=== PATIENT | male | born 1995 | race Caucasian/White ===

== ENCOUNTER 2024-05-01 13:10 | Emergency (ER) | payer OTHER, SELFPAY ==
[2024-05-01 13:13] VITALS: BP 142/81; PULSE 79; RESP 16; TEMP 36.6; O2SAT 98; BMI 29.5
--- NOTE | 2024-05-01 13:19 | DI.RAD.S_ITS ---
PROCEDURE: XR KNEE LT 3V INDICATIONS: fall skiing/pain TECHNIQUE: 3 views of the knee were acquired. COMPARISON: None. FINDINGS: Bones: No fractures or dislocations. No suspicious bony lesions. Soft tissues: Small joint effusion. No suspicious soft tissue calcifications. IMPRESSION: No acute osseous abnormality. Small knee joint effusion. If pain persists with conservative management, consider repeat x-ray in 10-14 days or cross-sectional imaging. Dictated by: Alfredo Mcallister M.D. on 05/01/2024 at 14:29 Approved by: Alfredo Mcallister M.D. on 05/01/2024 at 14:30
--- NOTE | 2024-05-01 15:42 | ED_ITS ---
HPI - Extremity Injury (Lower) <Carol Leung PA-C - Last Filed: 05/01/24 16:16> General Chief Complaint: Extremity Injury, Lower Stated Complaint: sent by [facility], r/o acl tear Time Seen by Provider: 05/01/24 14:28 Source: patient Mode of arrival: Wheelchair History of Present Illness HPI Narrative: 29-year-old male presents to the ED with 3 days of left-sided knee pain and swelling following a skiing accident. Patient states that he bumped into something uneven on the ski slope, which caused him to land roughly on his right knee, twisting it. Since then patient has been unable to fully bear weight and walk on that leg. Patient endorses left-sided knee pain and swelling. Patient also endorses some numbness to the back of his heel. Patient is wearing a knee brace that he got off of [employer] along with crutches. No tingling, weakness Related Data Allergies Allergy/AdvReac Type Severity Reaction Status Date / Time No Known Drug Allergies Allergy Verified 05/01/24 13:13 Review of Systems <Carol Leung PA-C - Last Filed: 05/01/24 16:16> Constitutional Constitutional: Denies chills, Denies fatigue, Denies fever(s), Denies frequent falls, Denies lethargy and Denies weakness Eyes Eyes: Denies change in vision, Denies eye discharge, Denies irritation and Denies loss of vision ENT Ears, Nose, Mouth, and Throat: Denies change in voice, Denies dizziness, Denies neck pain, Denies sore throat and Denies throat swelling Cardiovascular Cardiovascular: Denies chest pain, Denies irregular heart rhythm, Denies lightheadedness, Denies palpitations, Denies dyspnea, Denies dyspnea on exertion and Denies orthopnea Respiratory Respiratory: Denies cough, Denies dyspnea, Denies dyspnea on exertion and Denies wheezing Gastrointestinal Gastrointestinal: Denies abdominal pain, Denies change in bowel habits, Denies diarrhea, Denies nausea and Denies vomiting Musculoskeletal Musculoskeletal: Denies neck pain and Denies numbness Comments: Left knee pain, swelling. numbness in Left heel Integumentary/Breasts Skin/Breast: Denies pruritus, Denies erythema, Denies rash and Denies wounds Neurologic Neurologic: Denies behavioral changes, Denies confusion, Denies dizziness, Denies frequent falls, Denies loss of vision, Denies numbness and Denies weakness Psychiatric Psychiatric: Denies anxiety, Denies behavioral changes, Denies confusion, Denies depression, Denies homicidal ideation and Denies suicidal ideation Endocrine Endocrine: Denies fatigue, Denies flushing and Denies palpitations Hematologic/Lymphatic Hematologic/Lymphatic: Denies easy bruising Allergic/Immunologic Allergic/Immunologic: Denies urticaria, Denies throat swelling and Denies wheezing Patient History <Carol Leung PA-C - Last Filed: 05/01/24 16:16> Social History Smoking Status: Never smoker Smoking Status: Never smoker Exam <Carol Leung PA-C - Last Filed: 05/01/24 16:16> Narrative Exam Narrative: Const General:?cooperative, healthy appearing and comfortable HENNC Head:?normal to inspection Ears:?hearing grossly normal bilaterally Nose:?external nose normal Face and sinus:?normal facial exam and sinuses nontender Mouth:?oral mucosae normal Throat:?posterior oropharynx normal Eyes General:?appearance normal, both eyes and all related structures Neck Neck:?normal visual inspection and no lymphadenopathy noted Resp Effort & Inspection:?normal respiratory effort Auscultation:?clear to auscultation bilaterally Cardio Rate:?regular rate Rhythm:?regular rhythm Musculoskeletal There is some bruising, swelling, tenderness to palpation of the left knee. Lower extremity pulses intact. Cap refill less than 2 seconds. Strength and sensation intact. Neurovascularly intact. Neuro General:?patient alert, patient awake and patient oriented x3 Initial Vital Signs Initial Vital Signs: Vital Signs Temperature 97.8 F 05/01/24 13:13 Pulse Rate 79 05/01/24 13:13 Respiratory Rate 16 05/01/24 13:13 Blood Pressure 142/81 H 05/01/24 13:13 Pulse Oximetry 98 05/01/24 13:13 Oxygen Delivery Method Room Air 05/01/24 13:13 <Twan France MD - Last Filed: 05/02/24 07:31> Initial Vital Signs Initial Vital Signs: Vital Signs Temperature 97.8 F 05/01/24 13:13 Pulse Rate 79 05/01/24 13:13 Respiratory Rate 16 05/01/24 13:13 Blood Pressure 142/81 H 05/01/24 13:13 Pulse Oximetry 98 05/01/24 13:13 Oxygen Delivery Method Room Air 05/01/24 13:13 Course <Carol Leung PA-C - Last Filed: 05/01/24 16:16> Orders Ordered: ED Orders 05/01/24 13:19 XR knee LT 3V Stat Vital Signs Vital signs: Vital Signs - 8 hr 05/01/24 13:13 05/01/24 15:57 Temperature 97.8 F Pulse Rate 79 77 Respiratory Rate 16 20 Blood Pressure 142/81 H 139/80 Pulse Oximetry 98 100 Oxygen Delivery Method Room Air Room Air <Twan France MD - Last Filed: 05/02/24 07:31> Orders Ordered: ED Orders 05/01/24 13:19 XR knee LT 3V Stat Vital Signs Vital signs: Vital Signs - 8 hr 05/01/24 13:13 05/01/24 15:57 Temperature 97.8 F Pulse Rate 79 77 Respiratory Rate 16 20 Blood Pressure 142/81 H 139/80 Pulse Oximetry 98 100 Oxygen Delivery Method Room Air Room Air MDM - Extremity Injury (Lower) <Carol Leung PA-C - Last Filed: 05/01/24 16:16> MDM Narrative Medical decision making narrative: 29-year-old male presents to the ED with 3 days of left-sided knee pain and swelling following a skiing accident. Concern for fracture/dislocation versus musculoskeletal sprain/strain versus meniscus injury versus other. Will obtain x-ray. X-ray shows no acute osseous abnormality. There is a small knee joint effusion. Discussed findings with patient. Patient's symptoms could be due to a musculoskeletal sprain/strain due to ligamentous injury versus a meniscus tear versus other. Recommend knee brace, crutches, ice, elevation, ibuprofen. Recommend follow-up with PCP in a few days if symptoms do not improve. ED return precautions were discussed with patient. Patient verbalized understanding. Medical records reviewed: Yes Discharge Plan Departure Patient Disposition: Home Clinical Impression: Injury of knee, left Qualifiers: Encounter type: initial encounter Qualified Code(s): S89.92XA - Unspecified injury of left lower leg, initial encounter Instructions: DI for Knee Pain Activity Restrictions/Additional Instructions: You were evaluated in the ED today for a knee injury. Your x-ray did not show any fractures or dislocations, showed a knee effusion due to the injury. It is likely that you have a ligamentous or meniscus injury that is causing your symptoms. These types of injuries scan spontaneously heal over the next several days with no further interventions other than icing, knee brace, elevation, ibuprofen. You may take 800 mg of ibuprofen every 8 hours with food to reduce the pain and swelling. You may keep the knee brace on, tried to weight bear and walk as tolerable over the next several days. You are unable to weight bear, please continue using crutches. Please follow-up with your primary care doctor in the next few days if your symptoms do not appear to be improving. Return to the ED if you have worsening numbness, tingling, weakness, pain. Referrals: ProviderTucker [Primary Care Provider] - Stand Alone Forms: Patient Portal/API/Survey ED Sign-out <Twan France MD - Last Filed: 05/02/24 07:31> [facility]: I was immediately available in the department for consultation. ?This documentation has been reviewed and I agree with assessment and plan. Supervised by Twan France MD
[2024-05-01 15:57] VITALS: BP 139/80; PULSE 77; RESP 20; O2SAT 100
== END 2024-05-01 16:14 | disposition home or self-care (01) ==
PROVIDERS: Emergency Provider Student in an Organized Health Care Education/Training Program
DX: S89.92XA Unspecified injury of left lower leg, initial encounter (principal); W18.09XA Striking against other object with subsequent fall, initial encounter; Y93.23 Activity, snow (alpine) (downhill) skiing, snowboarding, sledding, tobogganing and snow tubing
CPT/HCPCS: 73562; 99281; 99283